=== PATIENT | female | born 1985 | race Native Hawaiian/Other Pacific Islander ===

== ENCOUNTER 2023-02-19 14:27 | Outpatient (AMB) | payer OTHER, SELFPAY ==
--- NOTE | 2023-02-19 14:28 | MHC.PC.OV ---
Vital Signs 02/19/23 14:31 Height 5 ft 5 in Weight 177 lb 8 oz BMI 29.5 BP 120/72 Blood Pressure Location Lt brachial Position Sitting Pulse 84 Pulse Source Pulse Oximeter Pulse Oximetry (%) 98 Oxygen Delivery Method Room Air Intake Visit Reasons: ongoing back pain Intake Note: Patient is here for follow up on back pain, and she was dealing with it during her , and would like to see a specialist regarding her back pain. Allergies No Known Allergies Allergy (Verified 02/19/23 14:36) Tobacco use date assessed: 07/10/22 HPI ongoing back pain HPI Details 38 y/o female presents to f/u ongoing back pain. Pt notes she was dealing with it during her and would like to see a specialist regarding her back pain. [facility] Medical History (Updated 07/10/22 @ 12:25 by Pieter Ambrosio CNP) Back disorder Surgical History (Updated 07/10/22 @ 11:32 by Keiko Claros CMA) History of back surgery Family History (Updated 07/10/22 @ 11:34 by Keiko Claros CMA) Father Thyroid condition Paternal Grandfather Hypertension (Updated 07/10/22 @ 11:31 by Keiko Claros CMA) Housing: House Alcohol intake: never Patient Tobacco Use Status: Never used Tobacco e-Cigarette/Vaping Use: Never Used Current occupational status: unemployed Current occupation: looking for employment Cognitive needs: No Hearing needs: No Vision needs: No Questionnaire Thrive Questionnaire Date Thrive assessed: 07/10/22 Review of Systems Const Denies chills, Denies fatigue, Denies fever(s), Denies headache(s) and Denies weakness ENT Denies dizziness and Denies headache(s) Card Denies dyspnea Resp Denies cough, Denies dyspnea, Denies wheezing and Denies other (shortness of breath) Musc Reports back pain, Denies numbness and Denies tingling Neuro Denies dizziness, Denies headache(s), Denies numbness, Denies tingling and Denies weakness Psych Denies anxiety and Denies depression Endo Denies fatigue Aller/Immun Denies wheezing Physical exam (Primary Care) BMI result Body Mass Index 29.5 Tobacco/Smoking Status: Tobacco use Status Tobacco use date assessed 07/10/22 02/19/23 14:31 Patient Tobacco Use Status Never used Tobacco 11/22/23 14:31 e-Cigarette/Vaping Use Never Used 02/19/23 14:31 Thrive Assessment: Date of Thrive Assessment Date Thrive assessed 07/10/22 02/19/23 14:31 Const General: well developed; No acute distress Nutritional Appearance: well nourished Orientation/consciousness: patient oriented x3 HENMT Head: Yes normocephalic and Yes atraumatic Eyes General: appearance normal, both eyes and all related structures Pupils: Equal, round and reactive pupils present EOM: EOMs intact bilaterally Resp Effort & Inspection: normal respiratory effort Neuro General: patient oriented x3 and gait normal Cranial nerves: Yes Equal, round and reactive pupils present Psych Affect: normal affect Assessment and Plan Assessment & Plan (1) Back pain: Code(s): M54.9 - Dorsalgia, unspecified Plan: Patient?with?history?of lumbar?diskectomy?presents?with?recurrent?back?pain Question?of?mild?decreased?patellar?tendon?reflex?on?the?left No?loss?of?bowel?or?bladder?function Will?give?her?ibuprofen?600?mg?t.i.d.?and?advised?ice/heat?relative?rest. Will?also?have?her?trial?physical?therapy Check?lumbar?plain?film Referred?to??[facility],?orthopedics Orders: Orders PT Evaluation and Treatment Today M54.9 - Dorsalgia, unspecified XR lumbar spine 2-3V Today M54.9 - Dorsalgia, unspecified Referrals Orthopedics Referral M54.9 - Dorsalgia, unspecified Medications: New ibuprofen 600 mg PO Q8H PRN 42 tabs 0RF pain 14 days Coding Level of Care Code Est Pt Level 3 (66562) Diagnoses Back pain M54.9
[2023-02-19 14:31] VITALS: BP 120/72; PULSE 84; O2SAT 98; BMI 29.5
== END 2023-02-19 14:57 | disposition home or self-care (01) ==
PROVIDERS: PCP Nurse Practitioner Family; Visit Provider Family Medicine
DX: M54.9 Dorsalgia, unspecified (principal)
CPT/HCPCS: 99213

== ENCOUNTER 2023-07-17 14:27 | Outpatient (AMB) | payer OTHER, SELFPAY ==
[2023-07-17 14:37] VITALS: BP 122/70; PULSE 79; O2SAT 98; BMI 30.9
--- NOTE | 2023-07-17 14:37 | MHC.PC.OV ---
Vital Signs 07/17/23 14:37 Height 5 ft 5 in Weight 186 lb BMI 30.9 BP 122/70 Blood Pressure Location Lt brachial Position Sitting Pulse 79 Pulse Source Pulse Oximeter Pulse Oximetry (%) 98 Oxygen Delivery Method Room Air Intake Visit Reasons: Skin concerns/moles Intake Note: Patient is here for dermatology referral for random spots on her face, and would like her left big toe checked out. Allergies No Known Allergies Allergy (Verified 07/17/23 14:41) Medication List - Last Reconciled 07/17/23 by Hoang Martinez MD acetaminophen (Tylenol) 650 mg PO Q4H PRN ibuprofen 600 mg PO Q8H PRN 14 days Tobacco use date assessed: 07/17/23 Dental Screening Dental Screen Date: 07/17/23 Did you have a dental visit in the last 12 months?: No Did you have a dental problem in the last 6 months where you did not have access to dental care?: No Was dental information given to patient?: Patient has dentist HPI Skin concerns/moles HPI Details 38 y/o female presents today with complaints of skin concerns/moles. She reports random spots on her face and is requesting a dermatology referral. Pt also has concerns about a possible nail trauma L big toe. [facility] Medical History Back disorder Surgical History History of back surgery Family History (Updated 07/17/23 @ 14:45 by Trudy Deng CMA) Father Thyroid condition Paternal Grandfather Hypertension Social History Housing: House Alcohol intake: never Patient Tobacco Use Status: Never used Tobacco e-Cigarette/Vaping Use: Never Used Current occupational status: employed and unemployed Current occupation: Property management Cognitive needs: No Hearing needs: No Vision needs: No Questionnaire PHQ-9 Over the last 2 weeks, how often have you been bothered by any of the following problems? 1. Little interest or pleasure in doing things: not at all 2. Feeling down, depressed, or hopeless: not at all 3. Trouble falling or staying asleep, or sleeping too much: not at all 4. Feeling tired or having little energy: not at all 5. Poor appetite or overeating: not at all 6. Feeling bad about yourself - or that you are a failure or have let yourself or your family down: not at all 7. Trouble concentrating on things, such as reading the newspaper or watching television: not at all 8. Moving or speaking so slowly that other people could have noticed. Or the opposite - being so fidgety or restless that you have been moving around a lot more than usual: not at all 9. Thoughts that you would be better off or of hurting yourself in some way: not at all Total score: 0 Depression Screening Interpretation: Negative Depression Screening Done: Yes 18844 - PHQ-9 Billing: Yes Source: Developed by Drs. Richard Oconnor, Christie Fenton, Mitul Rosario and colleagues, with an educational real from [employer]. Thrive Questionnaire Date Thrive assessed: 07/17/23 I am a: Patient What is your living situation today?: I have a steady place to live Within the past 12 months, did the food you bought not last and you didn't have the money to get more?: Never true Within the past 12 months, did you worry whether your food would run out before you got money to buy more?: Never true Do you have trouble paying for medicines?: No Do you have trouble getting transportation to medical appointments?: No Do you have trouble paying your heating and electricity bill?: No Do you have trouble taking care of your child, family member or friend?: No Do you have trouble with day-to-day activities such as bathing, preparing meals, shopping, managing finances, etc.?: No Are you currently unemployed and looking for a job?: No Are you interested in more education?: No THRIVE Score: 0 AUDIT C Alcohol Use Questionnaire (AUDIT-C) 1. How often do you have a drink containing alcohol?: Never 3. How often do you have six or more drinks on one occasion?: Never Total Score: 0 GEE-7 AMB Questionnaire GEE-7 Date GEE - 7 assessed: 07/17/23 Feeling nervous, anxious, or on edge: 0 = Not at all Not being able to stop or control worryin = Not at all Worrying too much about different things: 0 = Not at all Trouble relaxin = Not at all Being so restless that it is hard to sit still: 0 = Not at all Becoming easily annoyed or irritable: 0 = Not at all Feeling afraid as if something awful might happen: 0 = Not at all Total GEE-7 score (0-4 normal; 5-9 mild; 10-14 moderate; 15-21 severe): 0 Source: Developed by Drs. Richard Oconnor, Christie Fenton, Mitul Rosario and colleagues, with an educational real from [employer]. GEE-7 Assessment Billing GEE-7 Assessment Tool: GEE-7 Assessment 19614 Review of Systems Const Denies chills, Denies fatigue, Denies fever(s), Denies headache(s) and Denies weakness ENT Denies dizziness and Denies headache(s) Card Denies dyspnea Resp Denies cough, Denies dyspnea, Denies wheezing and Denies other (shortness of breath) Musc Denies numbness and Denies tingling Neuro Denies dizziness, Denies headache(s), Denies numbness, Denies tingling and Denies weakness Psych Denies anxiety and Denies depression Endo Denies fatigue Aller/Immun Denies wheezing Physical exam (Primary Care) Vital Signs: Last Vital Signs Pulse 79 07/17/23 14:37 BP 122/70 07/17/23 14:37 Pulse Ox 98 07/17/23 14:37 Oxygen Delivery Method Room Air 07/17/23 14:37 BMI result Body Mass Index 30.9 Tobacco/Smoking Status: Tobacco use Status Tobacco use date assessed 07/17/23 07/17/23 14:43 Patient Tobacco Use Status Never used Tobacco 07/17/23 14:43 e-Cigarette/Vaping Use Never Used 07/17/23 14:43 PHQ-9: PHQ-9 Score PHQ-9: Total score 0 07/17/23 15:01 Depression Screening Interpretation: Negative Thrive Assessment: Date of Thrive Assessment Date Thrive assessed 07/17/23 07/17/23 14:51 Const General: well developed; No acute distress Nutritional Appearance: well nourished Orientation/consciousness: patient oriented x3 HENMT Head: Yes normocephalic and Yes atraumatic Eyes General: appearance normal, both eyes and all related structures Pupils: Equal, round and reactive pupils present EOM: EOMs intact bilaterally Resp Effort & Inspection: normal respiratory effort Neuro General: patient oriented x3 and gait normal Cranial nerves: Yes Equal, round and reactive pupils present Psych Affect: normal affect Assessment and Plan Assessment & Plan (1) Neoplasm of uncertain behavior of skin: Code(s): D48.5 - Neoplasm of uncertain behavior of skin Plan: Numerous?moles?on?face?and?arm Referred?to?dermatology (2) Ingrown nail: Code(s): L60.0 - Ingrowing nail Plan: Already?appears?to?be?growing?out?though?still?mildly?inflamed Let?nail?grew?out?past?nail?bed Keep?pressure?off?of?nail Call?or?return?to?office?if?worsening (3) Back pain: Code(s): M54.9 - Dorsalgia, unspecified Plan: Ongoing?back?pain Start?physical?therapy She?would?like?a?referral?back?to?ortho-refer Resume?ibuprofen?and?try?to?keep?consistent?usage. Ice/heat Topicals Orders: Orders Comprehensive [place]. Panel Fast Today Z00.00 - Encounter for general adult medical examination without abnormal findings Lipid Panel Today Z00.00 - Encounter for general adult medical examination without abnormal findings Microalbumin, Random (w Creat) Today I10 - Essential (primary) hypertension TSH reflex Free T4 Today Z00.00 - Encounter for general adult medical examination without abnormal findings PT Evaluation and Treatment Today M54.9 - Dorsalgia, unspecified Complete Blood Count Auto Diff Today Z00.00 - Encounter for general adult medical examination without abnormal findings UA and rflx microscopic Today Z00.00 - Encounter for general adult medical examination without abnormal findings Referrals Dermatology Referral D48.5 - Neoplasm of uncertain behavior of skin Medications: Refilled ibuprofen 600 mg PO Q8H 14 days PRN 42 tabs 0RF pain Coding Level of Care Code Est Pt Level 4 (81847) Diagnoses Neoplasm of uncertain behavior of skin D48.5 Ingrown nail L60.0 Back pain M54.9 Additional Codes GEE-7 Assessment Billing - GEE-7 Assessment Tool: GEE-7 Assessment [id number] ([id number])
== END 2023-07-17 15:20 | disposition home or self-care (01) ==
PROVIDERS: PCP Nurse Practitioner Family; Visit Provider Family Medicine
DX: D48.5 Neoplasm of uncertain behavior of skin (principal); L60.0 Ingrowing nail; M54.9 Dorsalgia, unspecified
CPT/HCPCS: 99214

== ENCOUNTER 2024-09-07 14:47 | Outpatient (AMB) | payer OTHER, SELFPAY ==
--- NOTE | 2024-09-07 14:54 | MHC.PC.OV ---
Vital Signs 09/07/24 15:03 Height 5 ft 5 in Weight 190 lb 2 oz BMI 31.6 BP 120/74 Blood Pressure Location Rt brachial Position Sitting Respiration 14 Pulse 77 Pulse Source Pulse Oximeter Temp 98.1 F Temp Source Oral Pulse Oximetry (%) 98 Oxygen Delivery Method Room Air Intake Visit Reasons: referrals Intake Note: patient is scheduled to discuss symptoms she has been having so she can have referrals put in place to see ob/derm specialist and a PT referral Violin Mechanic Required: No Allergies No Known Allergies Allergy (Verified 09/07/24 14:59) Tobacco use date assessed: 07/17/23 Dental Screening Dental Screen Date: 07/17/23 HPI referrals HPI Details 39 y/o female presents today for referrals. Reports low back pain. She is requesting referral to dermatology for a spot on her lips. [facility] Medical History Back disorder Surgical History History of back surgery Family History (Updated 07/17/23 @ 14:45 by Trudy Deng CMA) Father Thyroid condition Paternal Grandfather Hypertension Social History Housing: House Alcohol intake: never Patient Tobacco Use Status: Never used Tobacco e-Cigarette/Vaping Use: Never Used Current occupational status: employed and unemployed Current occupation: Property management Cognitive needs: No Hearing needs: No Vision needs: No Questionnaire PHQ-9 Over the last 2 weeks, how often have you been bothered by any of the following problems? 1. Little interest or pleasure in doing things: not at all 2. Feeling down, depressed, or hopeless: not at all 3. Trouble falling or staying asleep, or sleeping too much: not at all 4. Feeling tired or having little energy: several days 5. Poor appetite or overeating: not at all 6. Feeling bad about yourself - or that you are a failure or have let yourself or your family down: not at all 7. Trouble concentrating on things, such as reading the newspaper or watching television: not at all 8. Moving or speaking so slowly that other people could have noticed. Or the opposite - being so fidgety or restless that you have been moving around a lot more than usual: not at all 9. Thoughts that you would be better off or of hurting yourself in some way: not at all Total score: 1 Source: Developed by Drs. Richard Oconnor, Christie Fenton, Mitul Rosario and colleagues, with an educational real from [employer]. Thrive Questionnaire Date Thrive assessed: 07/17/23 I am a: Patient What is your living situation today?: I have a steady place to live Within the past 12 months, did the food you bought not last and you didn't have the money to get more?: Never true Within the past 12 months, did you worry whether your food would run out before you got money to buy more?: Never true Do you have trouble paying for medicines?: No Do you have trouble getting transportation to medical appointments?: No Do you have trouble paying your heating and electricity bill?: No Do you have trouble taking care of your child, family member or friend?: No Do you have trouble with day-to-day activities such as bathing, preparing meals, shopping, managing finances, etc.?: No Are you currently unemployed and looking for a job?: No Are you interested in more education?: No Please select the resources that you would like help with: None Currently or been in a relationship where the following occur: No concerns reported THRIVE Score: 0 AUDIT C Alcohol Use Questionnaire (AUDIT-C) 1. How often do you have a drink containing alcohol?: Never Total Score: 0 GEE-7 AMB Questionnaire GEE-7 Date GEE - 7 assessed: 07/17/23 Feeling nervous, anxious, or on edge: 0 = Not at all Not being able to stop or control worryin = Not at all Worrying too much about different things: 0 = Not at all Trouble relaxin = Not at all Being so restless that it is hard to sit still: 0 = Not at all Becoming easily annoyed or irritable: 0 = Not at all Feeling afraid as if something awful might happen: 0 = Not at all Total GEE-7 score (0-4 normal; 5-9 mild; 10-14 moderate; 15-21 severe): 0 Source: Developed by Christie Gonzalez Eliceo, Mitul Rosario and colleagues, with an educational real from [employer]. Review of Systems Musc Reports back pain (low back pain) Physical exam (Primary Care) Vital Signs: Last Vital Signs Temp 98.1 F 09/07/24 15:03 Pulse 77 09/07/24 15:03 Resp 14 09/07/24 15:03 BP 120/74 09/07/24 15:03 Pulse Ox 98 09/07/24 15:03 Oxygen Delivery Method Room Air 09/07/24 15:03 BMI result Body Mass Index 31.6 Tobacco/Smoking Status: Tobacco use Status Tobacco use date assessed 07/17/23 09/07/24 14:55 Patient Tobacco Use Status Never used Tobacco 09/07/24 14:55 e-Cigarette/Vaping Use Never Used 09/07/24 14:55 PHQ-9: PHQ-9 Score PHQ-9: Total score 1 09/07/24 14:55 Thrive Assessment: Date of Thrive Assessment Date Thrive assessed 07/17/23 09/07/24 14:55 Currently or been in a relationship where the following occur: No concerns reported Coding Level of Care Code Est Pt Level 3 (75830) Diagnoses Low back pain M54.50 Neoplasm of uncertain behavior of skin D48.5 Screening for cervical cancer Z12.4 Assessment & Plan Assessment & Plan (1) Low back pain: Code(s): M54.50 - Low back pain, unspecified Category: Medical Plan: Ongoing?low?back?pain?and?her?orthopedic?specialist?had?recommended?physical?therapy Patient?would?like?to?be?referred?to?[facility]?Physical?therapy.??Order?is?in (2) Neoplasm of uncertain behavior of skin: Code(s): D48.5 - Neoplasm of uncertain behavior of skin Category: Medical Plan: Melanotic?lesion?on?her?lip Referred?to?do?most?dermatology (3) Screening for cervical cancer: Code(s): Z12.4 - Encounter for screening for malignant neoplasm of cervix Category: Medical Plan: Patient?would?like?a?referral?to?helicopter engineer at[facility] corporate strategy Referred Orders: Orders PT Evaluation and Treatment Today M54.50 - Low back pain, unspecified, M54.9 - Dorsalgia, unspecified MM tomosynthesis screening BI Today Z12.31 - Encounter for screening mammogram for malignant neoplasm of breast Complete Blood Count Auto Diff Today Z00.00 - Encounter for general adult medical examination without abnormal findings TSH reflex Free T4 Today Z00.00 - Encounter for general adult medical examination without abnormal findings Comprehensive [place]. Panel Fast Today Z00.00 - Encounter for general adult medical examination without abnormal findings Lipid Panel Today Z00.00 - Encounter for general adult medical examination without abnormal findings Microalbumin, Random (w Creat) Today I10 - Essential (primary) hypertension UA CC w/rflx Micro + Cult Today Z00.00 - Encounter for general adult medical examination without abnormal findings Referrals Dermatology Referral D48.5 - Neoplasm of uncertain behavior of skin SETUP TECHNICIAN Referral Z3A.22 - 22 weeks gestation of
[2024-09-07 15:03] VITALS: BP 120/74; PULSE 77; RESP 14; TEMP 36.7; O2SAT 98; BMI 31.6
--- OUTSIDE RECORDS SUMMARY | 2024-09-07 17:52 | XMS_ITS ---
Author Name [facility] Organization Unknown History of Medication Use Medication Directions Dispensed Refills Start Date End Date Stat us betamethasone dipropionate 0.05 % topical cream active cyclobenzaprine 10 mg tablet TAKE 1 TABLET BY MOUTH THREE TIMES DAILY NEEDED FOR BACK SPASM active Amelia 0.35 mg tablet TAKE 1 TABLET BY MOUTH EVERY DAY active Problems Problem Status Onset Date Problem Type Date of Resoluti on Source Low back pain active 2023-03-17 ProblemAct E[facility]_ [facility] History of lumbar discectomy active 2023-03-17 ProblemAct [facility] state active 2023-03-17 ProblemAct E NS_AONECT Degeneration of lumbar intervertebral disc active 2023-03-17 ProblemAct ENS_AONE [facility] Encounters Encounter Type Encounter Reason Primary Diagnosis Location Date Ambulatory [facility] [place] 08/30/2024 Ambulatory [facility] [place] 08/06/2024 Ambulatory [facility] [place] 11/03/2023 Ambulatory [facility] [place] 08/01/2023 Ambulatory [facility] [place] 03/17/2023 Ambulatory [facility] [place] 03[facility]15/2023 Ambulatory [facility] [place] 03/15/2023 Ambulatory [facility] [place] 03/14/2023 Ambulatory [facility] [place] 01/08/2023 Ambulatory [facility] [place] 01/08/2023
== END 2024-09-07 15:21 | disposition home or self-care (01) ==
LOC: HO.HMCFM 14:48
PROVIDERS: PCP Family Medicine; Visit Provider Family Medicine
DX: M54.50 Low back pain, unspecified (principal); D48.5 Neoplasm of uncertain behavior of skin; Z12.4 Encounter for screening for malignant neoplasm of cervix

== ENCOUNTER → 2024-09-07 14:47 | Outpatient (BNVA) | payer OTHER, SELFPAY | PROVIDERS: PCP Family Medicine; Visit Provider Family Medicine | DX: M54.50 Low back pain, unspecified (principal); D48.5 Neoplasm of uncertain behavior of skin | CPT/HCPCS: 99212 ==

== ENCOUNTER 2024-12-03 08:38 | Outpatient (REF) | payer OTHER, SELFPAY ==
--- OUTSIDE RECORDS SUMMARY | 2024-12-03 09:08 | XMS_ITS ---
Author Name [facility] Organization Unknown History of Medication Use Medication Directions Dispensed Refills Start Date End Date Stat us betamethasone dipropionate 0.05 % topical cream active cyclobenzaprine 10 mg tablet TAKE 1 TABLET BY MOUTH THREE TIMES DAILY NEEDED FOR BACK SPASM active Amelia 0.35 mg tablet TAKE 1 TABLET BY MOUTH EVERY DAY active Allergies Allergen Reaction Severity Comment Documented Date Source Statu s KATHY [facility] Problems Problem Status Onset Date Problem Type Date of Resoluti on Source Low back pain active 2023-03-17 ProblemAct E[facility]_ [facility] History of lumbar discectomy active 2023-03-17 ProblemAct [facility] state active 2023-03-17 ProblemAct E [facility] Degeneration of lumbar intervertebral disc active 2023-03-17 ProblemAct ENS_AONE CT Encounters Encounter Type Encounter Reason Primary Diagnosis Location Date Ambulatory [facility] [place] 10/31/2024 Ambulatory [facility] [place] 09/26/2024 Ambulatory [facility] [place] 08/30/2024 Ambulatory [facility] [place] 08/06/2024 Ambulatory [facility] [place] 11/03/2023 Ambulatory [facility] [place] 08/01/2023 Ambulatory [facility] [place] 03/17/2023 Ambulatory [facility] [place] 03/15/2023 Ambulatory [facility] [place] 03/15/2023 Ambulatory [facility] [place] 03/14/2023 Ambulatory [facility] [place] 01/08/2023 Ambulatory [facility] [place] 01/08/2023
[2024-12-03 11:12] LABS: MANUAL DIFF FLAG NO
[2024-12-03 11:13] LABS: Appearance Urine Clear; Glucose Urine UA Negative (Negative); PH 5.5 (5.0-9.0); Specific Gravity - Urine 1.015 (1.005-1.025); UMIC TRIGGER UACC YES
[2024-12-03 11:23] LABS: Hematocrit 42.1 % (37.0-47.0); Hemoglobin 14.3 g/dl (12.0-16.0); Imm Gran Abs Auto 0.02 X10*3/uL (0.00-0.03); Imm Gran Pct Auto 0.3 % (0.0-0.4); Lymphocytes Absolute Auto 1.6 X10*3/uL (1.2-4.9); Mean Corpuscular HGB Conc 34.0 g/dl (31.0-35.0); Mean Corpuscular Hemoglobin 31.6 pg (27.0-33.0); Mean Corpuscular Volume 92.9 fL (80.0-98.0); NRBC Abs Auto 0.000 X10*3/uL (0.0-0.012); NRBC Pct Auto 0.0 /100WBC (0.0-0.2); Platelet Count 229 X10*3/uL (160-400); Red Blood Count 4.53 X10*6/uL (4.20-5.50); White Blood Count 6.4 X10*3/uL (4.8-10.8)
[2024-12-03 11:54] LABS: Alanine Aminotransferase 23 U/L (0-31); Albumin Level 4.6 g/dL (3.5-5.0); Alkaline Phosphatase 55 U/L (39-117); Anion Gap 11 (12-20); Aspartate Amino Transferase 48 U/L (5-31); Blood Urea Nitrogen 13 mg/dL (9-16); Calcium 9.0 mg/dL (8.4-10.2); Carbon Dioxide 28 mmol/L (22-29); Chloride 108 mmol/L (96-108); Cholesterol 250 mg/dL (<200); Estimated Glomerular Filt Rate > 60; HDL Cholesterol 58 mg/dL (>40); Potassium 4.5 mmol/L (3.3-5.1); Sodium 142 mmol/L (135-145); Total Protein 7.0 g/dL (6.5-8.0); Triglycerides 218 mg/dL (<150)
[2024-12-03 12:04] LABS: Microalbum/Creatinine Ratio Ur 11.7 ug/mg cr (<30)
== END 2024-12-03 08:39 | disposition home or self-care (01) ==
LOC: HO.WFDLDS 08:38
PROVIDERS: Visit Provider Family Medicine
DX: Z00.00 Encounter for general adult medical examination without abnormal findings (principal); I10 Essential (primary) hypertension
CPT/HCPCS: 36415; 80053; 80061; 81001; 82043; 82570; 84443; 85025

== ENCOUNTER 2024-12-07 14:05 | Outpatient (AMB) | payer OTHER, SELFPAY ==
--- NOTE | 2024-12-07 14:00 | MHC.PC.OV ---
Intake Visit Reasons: f/u labs via telemedicine Intake Note: Lynn presents for a telehealth appointment to go over her most recent lab results. Allergies No Known Allergies Allergy (Verified 12/07/24 14:01) Medication List - Last Reconciled 12/07/24 by Hoang Martinez MD acetaminophen (Tylenol) 650 mg PO Q4H PRN ibuprofen 600 mg PO Q8H PRN 14 days Tobacco use date assessed: 12/07/24 Dental Screening Dental Screen Date: 12/07/24 Did you have a dental visit in the last 12 months?: Yes Did you have a dental problem in the last 6 months where you did not have access to dental care?: No Was dental information given to patient?: Patient has dentist HPI f/u labs via telemedicine HPI Details 39 y/o female presents to f/u labs via telemed. Labs drawn 12/03/24. Reviewed labs with pt. Elevated AST of 48. Triglycerides 218. TC 250. LDL 149. HDL 58. TSH 1.39. Moderate blood in urine. Pt reports she has been feeling dizzy recently, describing symptoms as motion sickness ever since she got back from her trip. [facility] Medical History Back disorder Surgical History History of back surgery Family History Father Thyroid condition Paternal Grandfather Hypertension Social History (Updated 12/07/24 @ 14:02 by Arcelia Hopson MA) Housing: House Alcohol intake: never Patient Tobacco Use Status: Never used Tobacco e-Cigarette/Vaping Use: Never Used Second Hand Smoke Exposure: No Use of substances other than those prescribed or required for medical reasons: No Current occupational status: employed and unemployed Current occupation: Property management Cognitive needs: No Hearing needs: No Vision needs: No Questionnaire Thrive Questionnaire Date Thrive assessed: 09/07/24 I am a: Patient What is your living situation today?: I have a steady place to live Within the past 12 months, did the food you bought not last and you didn't have the money to get more?: Never true Within the past 12 months, did you worry whether your food would run out before you got money to buy more?: Never true Do you have trouble paying for medicines?: No Do you have trouble getting transportation to medical appointments?: No Do you have trouble paying your heating and electricity bill?: No Do you have trouble taking care of your child, family member or friend?: No Do you have trouble with day-to-day activities such as bathing, preparing meals, shopping, managing finances, etc.?: No Are you currently unemployed and looking for a job?: No Are you interested in more education?: No Please select the resources that you would like help with: None Currently or been in a relationship where the following occur: No concerns reported THRIVE Score: 0 AUDIT C Alcohol Use Questionnaire (AUDIT-C) 3. How often do you have six or more drinks on one occasion?: Never Total Score: 0 GEE-7 AMB Questionnaire GEE-7 Date GEE - 7 assessed: 07/17/23 Source: Developed by Drs. Richard Oconnor, Christie Fenton, Mitul Rosario and colleagues, with an educational real from [employer]. Review of Systems Const Denies chills, Denies fatigue, Denies fever(s), Denies headache(s) and Denies weakness ENT Denies dizziness and Denies headache(s) Card Denies dyspnea Resp Denies cough, Denies dyspnea, Denies wheezing and Denies other (shortness of breath) Musc Denies numbness and Denies tingling Neuro Denies dizziness, Denies headache(s), Denies numbness, Denies tingling and Denies weakness Psych Denies anxiety and Denies depression Endo Denies fatigue Aller/Immun Denies wheezing Physical exam (Primary Care) Tobacco/Smoking Status: Tobacco use Status Tobacco use date assessed 12/07/24 12/07/24 14:03 Patient Tobacco Use Status Never used Tobacco 12/07/24 14:03 e-Cigarette/Vaping Use Never Used 12/07/24 14:03 Thrive Assessment: Date of Thrive Assessment Date Thrive assessed 09/07/24 12/07/24 14:03 Currently or been in a relationship where the following occur: No concerns reported Telehealth Telehealth Telehealth Platform: Telephone Location of provider rendering services: practice address Location of patient: address on file Telehealth method: voice only Patient verbally consented to treatment: Yes Patient verbally consented to billing insurance company: Yes Patient informed of any privacy concerns related to visit: Yes Minutes spent on Phone/Video with Pt.: 20 Coding Level of Care Code Tele Est Pt Level 3 (54116) Diagnoses Elevated AST (SGOT) R74.01 Hypercholesterolemia E78.00 Hematuria R31.9 Dizziness R42 Menorrhagia N92.0 Assessment & Plan Assessment & Plan (1) Elevated AST (SGOT): Code(s): R74.01 - Elevation of levels of liver transaminase levels Category: Medical Plan: Mildly elevated AST Encouraged weight loss and good hydration Will repeat liver enzymes with next blood draw and discuss. If still the same or higher, would check an ultrasound (2) Hypercholesterolemia: Code(s): E78.00 - Pure hypercholesterolemia, unspecified Category: Medical Plan: LDL cholesterol is too high Encouraged diet low in saturated fats and cholesterol. Encouraged weight loss Will recheck prior to next visit and we discussed that if he is not able to make significant improvements which should discuss medication (3) Hematuria: Code(s): R31.9 - Hematuria, unspecified Category: Medical Plan: Patient notes that she has had menorrhagia and was menstruating when she gave her urine sample Will recheck this with next set of labs (4) Dizziness: Code(s): R42 - Dizziness and giddiness Category: Medical Plan: Patient notes motion sickness and vertigo-like symptoms after a plane ride Likely labyrinthitis She can use some meclizine Hydrate well She has an upcoming appointment later this month if still having difficulties we consider vestibular rehab (5) Menorrhagia: Code(s): N92.0 - Excessive and frequent menstruation with regular cycle Category: Medical Plan: Ongoing menorrhagia Referred to general superintendent CBC shows no anemia Orders: Orders UA CC w/rflx Micro + Cult Today R31.9 - Hematuria, unspecified, Z00.00 - Encounter for general adult medical examination without abnormal findings Comprehensive [place]. Panel Fast Today R74.01 - Elevation of levels of liver transaminase levels, Z00.00 - Encounter for general adult medical examination without abnormal findings Lipid Panel Today E78.00 - Pure hypercholesterolemia, unspecified, Z00.00 - Encounter for general adult medical examination without abnormal findings Medications: New meclizine 50 mg PO DAILY PRN 30 tabs 0RF motion sickness 30 days
== END 2024-12-07 16:01 | disposition home or self-care (01) ==
LOC: HO.HMCFM 14:05
PROVIDERS: PCP Family Medicine; Visit Provider Family Medicine
DX: R74.01 Elevation of levels of liver transaminase levels (principal); E78.00 Pure hypercholesterolemia, unspecified; R31.9 Hematuria, unspecified; R42 Dizziness and giddiness; N92.0 Excessive and frequent menstruation with regular cycle

== ENCOUNTER 2024-12-17 13:09 | Outpatient (AMB) | payer OTHER, SELFPAY ==
[2024-12-17 13:10] VITALS: BP 136/78; PULSE 77; O2SAT 97; BMI 32.0
--- NOTE | 2024-12-17 13:10 | A.OFFPC_ITS ---
Vital Signs 12/17/24 13:10 Height 5 ft 5 in Weight 192 lb 6 oz BMI 32.0 BP 136/78 Blood Pressure Location Rt brachial Position Sitting Pulse 77 Pulse Source Pulse Oximeter Pulse Oximetry (%) 97 Oxygen Delivery Method Room Air Intake Visit Reasons: CPE Allergies No Known Allergies Allergy (Verified 12/17/24 13:12) Medication List - Last Reconciled 12/19/24 by Hoang Martinez MD ibuprofen 600 mg PO Q8H PRN 14 days meclizine 50 mg PO DAILY PRN 30 days Tobacco use date assessed: 12/17/24 Dental Screening Dental Screen Date: 12/17/24 Did you have a dental visit in the last 12 months?: Yes Did you have a dental problem in the last 6 months where you did not have access to dental care?: No Was dental information given to patient?: Patient has dentist HPI CPE HPI Details 39 y/o female presents for a CPE with f/ u labs and health maint. Labs drawn 12/03/24. Reviewed labs with pt. Elevated AST of 48. ALT 23. Triglycerides 218. TC 250. LDL 149. HDL 58. TSH 1.39. Pt notes dizziness have been improving but does still note ongoing symptoms. She feels it was mostly due to her plane trip. [facility] Medical History Back disorder Surgical History History of back surgery Family History Father Thyroid condition Paternal Grandfather Hypertension Social History Housing: House Alcohol intake: never Patient Tobacco Use Status: Never used Tobacco e-Cigarette/Vaping Use: Never Used Second Hand Smoke Exposure: No Current occupational status: employed and unemployed Current occupation: Property management Cognitive needs: No Hearing needs: No Vision needs: No Questionnaire PHQ-9 Over the last 2 weeks, how often have you been bothered by any of the following problems? 1. Little interest or pleasure in doing things: not at all 2. Feeling down, depressed, or hopeless: not at all 3. Trouble falling or staying asleep, or sleeping too much: not at all 4. Feeling tired or having little energy: several days 5. Poor appetite or overeating: not at all 6. Feeling bad about yourself - or that you are a failure or have let yourself or your family down: not at all 7. Trouble concentrating on things, such as reading the newspaper or watching television: not at all 8. Moving or speaking so slowly that other people could have noticed. Or the opposite - being so fidgety or restless that you have been moving around a lot more than usual: not at all 9. Thoughts that you would be better off or of hurting yourself in some way: not at all Total score: 1 Source: Developed by Drs. Richard Oconnor, Christie Fenton, Mitul Rosario and colleagues, with an educational real from [employer]. Thrive Questionnaire Date Thrive assessed: 09/07/24 I am a: Patient What is your living situation today?: I have a steady place to live Within the past 12 months, did the food you bought not last and you didn't have the money to get more?: Never true Within the past 12 months, did you worry whether your food would run out before you got money to buy more?: Never true Do you have trouble paying for medicines?: No Do you have trouble getting transportation to medical appointments?: No Do you have trouble paying your heating and electricity bill?: No Do you have trouble taking care of your child, family member or friend?: No Do you have trouble with day-to-day activities such as bathing, preparing meals, shopping, managing finances, etc.?: No Are you currently unemployed and looking for a job?: No Are you interested in more education?: No Please select the resources that you would like help with: None Currently or been in a relationship where the following occur: No concerns reported THRIVE Score: 0 AUDIT C Alcohol Use Questionnaire (AUDIT-C) 1. How often do you have a drink containing alcohol?: Monthly or less 2. How many drinks containing alcohol do you have on a typical day when you are drinking?: 1 or 2 3. How often do you have six or more drinks on one occasion?: Never Total Score: 1 GEE-7 AMB Questionnaire GEE-7 Date GEE - 7 assessed: 09/07/24 Feeling nervous, anxious, or on edge: 0 = Not at all Not being able to stop or control worryin = Not at all Worrying too much about different things: 0 = Not at all Trouble relaxin = Not at all Being so restless that it is hard to sit still: 0 = Not at all Becoming easily annoyed or irritable: 0 = Not at all Feeling afraid as if something awful might happen: 0 = Not at all Total GEE-7 score (0-4 normal; 5-9 mild; 10-14 moderate; 15-21 severe): 0 Source: Developed by Drs. Richard Oconnor, Christie Fenton, Mitul Rosario and colleagues, with an educational real from [employer]. Review of Systems Const Denies chills, Denies fatigue, Denies fever(s), Denies headache(s) and Denies weakness Eyes Denies change in vision ENT Denies dizziness and Denies headache(s) Card Denies dyspnea Resp Denies cough, Denies dyspnea, Denies wheezing and Denies other (shortness of breath) GI Denies abdominal pain, Denies melena, Denies hematochezia, Denies change in bowel habits, Denies dyspepsia and Denies nausea Denies hematuria and Denies dysuria Musc Denies numbness and Denies tingling Skin/Breast Denies rash, Denies unusual bruising and Denies wounds Neuro Denies dizziness, Denies headache(s), Denies numbness, Denies Sensory deficit (Neuro), Denies tingling and Denies weakness Psych Denies anxiety and Denies depression Endo Denies fatigue Bennie/Lymph Denies easy bleeding and Denies easy bruising Aller/Immun Denies wheezing Physical exam (Primary Care) Vital Signs: Last Vital Signs Pulse 77 12/17/24 13:10 BP 136/78 12/17/24 13:10 Pulse Ox 97 12/17/24 13:10 Oxygen Delivery Method Room Air 12/17/24 13:10 BMI result Body Mass Index 32.0 Tobacco/Smoking Status: Tobacco use Status Tobacco use date assessed 12/17/24 12/17/24 13:14 Patient Tobacco Use Status Never used Tobacco 12/17/24 13:14 e-Cigarette/Vaping Use Never Used 12/17/24 13:14 PHQ-9: PHQ-9 Score PHQ-9: Total score 1 12/17/24 13:34 Thrive Assessment: Date of Thrive Assessment Date Thrive assessed 09/07/24 12/17/24 13:14 Currently or been in a relationship where the following occur: No concerns reported Const General: well developed; No acute distress Nutritional Appearance: well nourished Orientation/consciousness: patient oriented x3 [facility] Head: Yes normocephalic and Yes atraumatic Ears: hearing grossly normal bilaterally and TM's normal bilaterally General nose exam: Normal external nose present and Normal nares present Mouth: Normal oral and palatal mucosa present and moist mucous membranes Teeth and gingiva: dentition normal Throat: Yes posterior oropharynx normal Eyes General: appearance normal, both eyes and all related structures Pupils: Equal, round and reactive pupils present EOM: EOMs intact bilaterally Neck Neck: Yes normal visual inspection, Yes no lymphadenopathy and Yes trachea midline Thyroid: Thyroid normal Carotids: no bruits Lymphatic: no lymphadenopathy noted Chest Chest palpation & inspection: normal inspection of the chest Resp Effort & Inspection: normal respiratory effort Auscultation: clear to auscultation bilaterally Cardio Rate: regular rate Rhythm: regular rhythm Heart sounds: S1 normal heart sound present, S2 normal heart sound present, no gallops, no murmurs and no rubs Bruits: no abdominal aortic bruits and no carotid bruits GI Palpation (GI): No Abdominal aortic bruit present, Soft to palpation, nontender, No hepatosplenomegaly present and No Rebound tenderness present Auscultation: normal bowel sounds General: Yes no CVA tenderness Back/Spine/Pelvis Back: no CVA tenderness Cervical Spine: cervical ROM normal and No Cervical spine tenderness Thoracic/Lumbar Spine: thoraco-lumbar ROM normal, No pain with thoraco-lumbar ROM, No thoracic spinal tenderness and No lumbar spinal tenderness Skin Lesions: no lesions Rashes: no rashes Trauma: no lacerations or abrasions Wounds: no wounds Nails: normal Neuro General: patient oriented x3 and gait normal Cranial nerves: Yes Equal, round and reactive pupils present Cognition (Neuro): normal cognition Gait exam (Neuro): Normal gait present Motor exam (neuro): 5/5 motor strength present throughout Sensory Exam: No Sensory deficit (Neuro) Deep tendon reflexes (DTR's): Right patellar reflex intensity grade: 2+ and Left patellar reflex intensity grade: 2+ Extrem General: Yes normal to inspection and No edema Psych Appearance: grossly normal Affect: normal affect Attitude: cooperative Thought process: Normal thought process present Coding Level of Care Code Est Pt Level 3 (35135) Est Pt Prev Care 18-39y(33506) Diagnoses Adult general medical exam Z00.00 Dizziness R42 Hypercholesterolemia E78.00 Assessment & Plan Assessment & Plan (1) Adult general medical exam: Code(s): Z00.00 - Encounter for general adult medical examination without abnormal findings Category: Medical Plan: 39 y/o female presents for complete physical exam (2) Dizziness: Code(s): R42 - Dizziness and giddiness Category: Medical Plan: Still has sxs. Referred to PT (3) Hypercholesterolemia: Code(s): E78.00 - Pure hypercholesterolemia, unspecified Category: Medical Plan: will f/u at next ov, after lab draw Orders: Orders PT Evaluation and Treatment Today R42 - Dizziness and giddiness
== END 2024-12-17 13:44 | disposition home or self-care (01) ==
LOC: HO.HMCFM 13:09
PROVIDERS: PCP Family Medicine; Visit Provider Family Medicine
DX: Z00.00 Encounter for general adult medical examination without abnormal findings (principal); R42 Dizziness and giddiness; E78.00 Pure hypercholesterolemia, unspecified

== ENCOUNTER → 2024-12-17 13:09 | Outpatient (BNVA) | payer OTHER, SELFPAY | PROVIDERS: PCP Family Medicine; Visit Provider Family Medicine | DX: Z00.00 Encounter for general adult medical examination without abnormal findings (principal); R42 Dizziness and giddiness | CPT/HCPCS: 96127; 99212 ==